=== PATIENT | female | born 1970 | race Caucasian/White ===

== ENCOUNTER → 2018-01-03 09:59 | Outpatient (CLI) | payer OTHER, SELFPAY ==
[2018-01-03 10:29] LABS: Add Manual Diff / Slide Review NO; Basophils Percent Auto 1.3 % (0-2); Eosinophils Percent Auto 2.3 % (2-4); Hematocrit 36.1 % (36-46); Lymphocytes Percent Auto 45.7 % (25-40); Mean Corpuscular HGB Conc 33.4 % (30-36); Mean Corpuscular Hemoglobin 28.8 PG (26-34); Mean Corpuscular Volume 86.4 fL (80-100); Monocytes Percent Auto 10.8 % (3-14); Neutrophils Absolute Auto 1800 /uL (3000-5900); Neutrophils Percent Auto 39.9 % (50-75); Platelet Count 221 X10^3/uL (150-400); Red Blood Cell Count 4.17 X10^6/uL (4.0-5.2); Red Cell Distribution Width 17.8 % (11.6-14.8); White Blood Cell Count 4.6 X10^3/uL (4.5-11.0)
[2018-01-03 10:44] LABS: Alanine Aminotransferase 24 IU/L (9-52); Albumin 4.5 g/dL (3.5-5.0); Albumin Globulin Ratio 1.6 (1.0-2.8); Alkaline Phosphatase 64 U/L (38-126); Aspartate Aminotransferase 26 IU/L (14-36); BUN Creatinine Ratio 11.1 (6-22); Bilirubin Total 0.5 mg/dL (0.2-1.3); Blood Urea Nitrogen 10 mg/dL (7-17); Calcium 9.6 mg/dL (8.4-10.2); Carbon Dioxide 29 mmol/L (22-32); Chloride 106 mmol/L (98-107); Estimated Glomerular Filt Rate > 60.0 mL/min (>60); Globulin 2.8 g/dL (1.7-4.1); Glucose 125 mg/dL (70-100); HEMOLYSIS < 15 (0-50); Potassium 4.8 mmol/L (3.4-5.1); Sodium 144 mmol/L (137-145); Total Protein 7.3 g/dL (6.3-8.2)
[2018-01-03 11:11] LABS: Thyroid Stimulating Hormone 1.38 uIU/mL (0.47-4.68)
== END ==
PROVIDERS: Visit Provider Psychiatry & Neurology Psychiatry
DX: Z51.81 Encounter for therapeutic drug level monitoring (principal)
CPT/HCPCS: 36415; 80053; 84443; 85025

== ENCOUNTER → 2018-11-07 17:43 | Outpatient (CLI) | payer OTHER, SELFPAY ==
--- NOTE | 2018-11-07 | DI.MRI.S_ITS ---
PROCEDURE: MR LUMBAR SPINE WO CON INDICATIONS: LOW BACK PAIN TECHNIQUE: Noncontrast sagittal T1 spin echo and T2 fast echo, coronal T2, sagittal STIR, axial T1 and T2 fast spin echo through the lumbar spine. COMPARISON: [facility] [place], CR, XR LUMBAR SPINE WITH OLBIQUES PLUS FLEXION EXTENSION, 09/20/2018, 10:30. FINDINGS: Image quality: Excellent. Alignment and Curvature: 5 lumbar type vertebral bodies are present by plain film. There is moderate rightward curvature of the mid/upper lumbar spine, and otherwise normal bony alignment. Bone Marrow: Marrow is of normal overall signal. No acute vertebral body compression fractures. There is mild reactive signal within the endplates adjacent to the L2-L3 and L4-L5 intervertebral discs. Spinal Cord: Conus medullaris terminates at the upper L2 level. Visualized cord demonstrates normal signal and size. Paraspinous Soft Tissues: No paravertebral masses. L1-L2: Mild disc desiccation. Mild diffuse disc bulge. Mild bilateral facet and ligament flavum hypertrophy. Mild canal stenosis. No foraminal stenosis. L2-L3: Moderate disc height loss and desiccation. Moderate diffuse disc bulge. Mild bilateral facet and ligamentum flavum hypertrophy. Mild canal stenosis. Mild left foraminal stenosis. No right foraminal stenosis. L3-L4: Mild disc height loss and desiccation. Mild bilateral facet and ligamentum flavum hypertrophy. No significant canal, nor foraminal stenosis. L4-L5: Moderate disc height loss and desiccation. Mild diffuse disc bulge with small superimposed broad-based right posterolateral and far lateral protrusion. Mild bilateral facet hypertrophy. Mild canal stenosis. Mild right and no left foraminal stenosis. L5-S1: Mild disc height loss and desiccation. Mild diffuse disc bulge. Mild bilateral facet hypertrophy. No significant canal stenosis. Mild bilateral foraminal stenosis. IMPRESSION: 1. Multilevel degenerative disc and facet disease, as well as ligamentum flavum hypertrophy and epidural lipomatosis. 2. Mild multilevel canal and foraminal stenoses. No neural impingement. Dictated by: Tony Rodriguez M.D. on 11/08/2018 at 10:46 Approved by: Tony Rodriguez M.D. on 11/08/2018 at 10:59
== END ==
PROVIDERS: Visit Provider Physical Medicine & Rehabilitation
DX: M54.5 Low back pain (principal); M51.36 Other intervertebral disc degeneration, lumbar region; M47.816 Spondylosis without myelopathy or radiculopathy, lumbar region
CPT/HCPCS: 72148

== ENCOUNTER → 2019-05-30 17:08 | Outpatient (CLI) | payer OTHER, SELFPAY ==
--- NOTE | 2019-05-30 | DI.MRI.S_ITS ---
PROCEDURE: MR CERVICAL SPINE WO CON INDICATIONS: radiculopathy, cervical region TECHNIQUE: Noncontrast sagittal T1 spin echo and T2 fast spin echo, sagittal STIR, foraminal oblique sagittal T2 fast spin echo, and axial gradient echo or T2 fast spin echo through the cervical spine. COMPARISON: None. FINDINGS: Image quality: Excellent. Alignment and Curvature: Straightening of the normal lordotic curvature. Bone Marrow: Multilevel degenerative endplate sclerosis and spurring. Diffuse facet arthropathy, however most severe at C2-C3 on the left. Spinal Cord: Visualized spinal cord has normal size and signal. No cerebellar tonsillar herniation. Paraspinous Soft Tissues: No paravertebral masses. Prevertebral soft tissues are normal in thickness. C2-C3: No central canal stenosis, or right foraminal narrowing. Moderate left foraminal stenosis related to facet hypertrophy with nerve root compression. C3-C4: No central canal stenosis. Moderate right foraminal stenosis with nerve root compression. Mild left foraminal narrowing C4-C5: No significant central canal stenosis. Prominent vessels present within the neural foramen, and mild right foraminal narrowing. Prominent vessels are noted within the neural foramen, and mild left foraminal narrowing. C5-C6: No central canal stenosis. Prominent vessels near the neural foramen, and no minimal foraminal narrowing. No right foraminal stenosis C6-C7: No high-grade central canal stenosis. Mild right-sided foraminal narrowing. No left foraminal stenosis C7-T1: No central canal stenosis. Mild bilateral foraminal narrowing. IMPRESSION: Multilevel lumbar spondylosis and prominent diffuse facet arthropathy as above. No high-grade central canal stenosis Numerous bilateral foraminal stenoses as detailed above by spinal level. Straightening of the normal lordotic curvature. Dictated by: Maxwell Dean M.D. on 05/31/2019 at 8:27 Approved by: Maxwell Dean M.D. on 05/31/2019 at 8:55
== END ==
PROVIDERS: PCP Nurse Practitioner Family; Referring Provider Physical Medicine & Rehabilitation; Visit Provider Physical Medicine & Rehabilitation
DX: M47.22 Other spondylosis with radiculopathy, cervical region (principal); M48.02 Spinal stenosis, cervical region
CPT/HCPCS: 72141

== ENCOUNTER → 2021-03-09 07:37 | Outpatient (CLI) | payer OTHER, SELFPAY ==
--- NOTE | 2021-03-09 07:39 | DI.RAD.S_ITS ---
PROCEDURE: XR HAND RT MIN 3V INDICATIONS: thumb pain TECHNIQUE: 3 views of the hand(s) acquired. COMPARISON: None. FINDINGS: Bones: No fractures or dislocations. Carpal bones are normally aligned. No suspicious bony lesions. Thumb is unremarkable. Soft tissues: No suspicious soft tissue calcifications. IMPRESSION: No evidence acute bony abnormality of the right hand. If clinical suspicion and/or symptoms persist, further assessment with repeat plain films, or advanced imaging (e.g., CT, MRI, or bone scan) may be helpful for further assessment. Dictated by: Soham Granados M.D. on 03/09/2021 at 8:48 Approved by: Soham Granados M.D. on 03/09/2021 at 8:49
[2021-03-09 08:34] LABS: Add Manual Diff / Slide Review NO; Basophils Absolute Auto 0 /uL (0-100); Basophils Percent Auto 0.7 % (0-2); Eosinophils Absolute Auto 100 /uL (0-450); Eosinophils Percent Auto 1.4 % (2-4); Hematocrit 36.1 % (36-46); Hemoglobin 11.7 g/dL (12.0-16.0); Lymphocytes Absolute Auto 2200 /uL (1100-4500); Lymphocytes Percent Auto 36.8 % (25-40); Mean Corpuscular HGB Conc 32.3 % (30-36); Mean Corpuscular Hemoglobin 29.7 PG (26-34); Mean Corpuscular Volume 91.9 fL (80-100); Monocytes Absolute Auto 600 /uL (0-900); Monocytes Percent Auto 9.6 % (3-14); Neutrophils Absolute Auto 3100 /uL (1500-7000); Neutrophils Percent Auto 51.5 % (50-75); Platelet Count 184 X10^3/uL (150-400); Red Blood Cell Count 3.93 X10^6/uL (4.0-5.2); Red Cell Distribution Width 16.7 % (11.6-14.8)
[2021-03-09 08:54] LABS: Alanine Aminotransferase 20 IU/L (<35); Albumin 4.3 g/dL (3.5-5.0); Albumin Globulin Ratio 1.6 (1.0-2.8); Alkaline Phosphatase 54 U/L (38-126); Aspartate Aminotransferase 28 IU/L (14-36); BUN Creatinine Ratio 14.3 (6-22); Bilirubin Total 0.4 mg/dL (0.2-1.3); Blood Urea Nitrogen 13 mg/dL (7-17); Calcium 9.7 mg/dL (8.4-10.2); Carbon Dioxide 28 mmol/L (22-32); Chloride 104 mmol/L (98-107); Cholesterol 186 mg/dL (140-199); Estimated Glomerular Filt Rate > 60.0 mL/min (>60); Globulin 2.7 g/dL (1.7-4.1); Glucose 101 mg/dL (70-100); HDL Cholesterol 65 mg/dL (40-60); HEMOLYSIS < 15 (0-50); LDL Cholesterol Calculated 103 mg/dL (<100); Potassium 4.8 mmol/L (3.4-5.1); Sodium 140 mmol/L (137-145); Triglycerides 90 mg/dL (35-150)
[2021-03-09 09:16] LABS: TSH w/ Reflex to FT4 0.89 uIU/mL (0.47-4.68)
== END ==
PROVIDERS: PCP Internal Medicine; Referring Provider Internal Medicine; Visit Provider Internal Medicine
DX: M79.646 Pain in unspecified finger(s) (principal); F10.21 Alcohol dependence, in remission; F43.12 Post-traumatic stress disorder, chronic; G89.29 Other chronic pain; M54.9 Dorsalgia, unspecified; Z13.1 Encounter for screening for diabetes mellitus; Z13.220 Encounter for screening for lipoid disorders
CPT/HCPCS: 36415; 73130; 80053; 80061; 84443; 85025

== ENCOUNTER → 2021-07-21 | Outpatient (CLI) | payer OTHER, SELFPAY ==
--- NOTE | 2021-07-21 | DI.MG.S_ITS ---
BILATERAL DIGITAL SCREENING MAMMOGRAM 3D/2D WITH CAD WITH AUGMENTATION: 07/21/2021 CLINICAL: Routine screening. No prior exams were available for comparison. The tissue of both breasts is heterogeneously dense. This may lower the sensitivity of mammography. Current study was also evaluated with a Computer Aided Detection (CAD) system. Bilateral breast implants are intact. No significant masses, calcifications, or other findings are seen in either breast. IMPRESSION: NEGATIVE There is no mammographic evidence of malignancy. A 1 year screening mammogram is recommended. This exam was interpreted at Station ID: [id number]. NOTE: For mammograms, a report in lay terms will be sent to the patient. Approximately 15% of breast malignancies will not be visualized mammographically. In the management of a palpable breast mass, a negative mammogram must not discourage biopsy of a clinically suspicious lesion. Electronically Signed By: Dusty lee/alicia:07/31/2021 13:33:38 letter sent: Normal Exam ACR BI-RADS Category 1: Negative 3341F
== END ==
LOC: MAMMO 08:03
PROVIDERS: PCP Internal Medicine; Referring Provider Internal Medicine; Visit Provider Internal Medicine
DX: Z12.31 Encounter for screening mammogram for malignant neoplasm of breast (principal)
CPT/HCPCS: 77063; 77067

== ENCOUNTER → 2021-10-01 11:17 | Outpatient (CLI) | payer OTHER, SELFPAY ==
--- NOTE | 2021-10-01 | DI.MRI.S_ITS ---
PROCEDURE: MR LUMBAR SPINE WO CON INDICATIONS: RADICULOPATHY LUMBAR REGION TECHNIQUE: Noncontrast sagittal T1 spin echo and T2 fast echo, sagittal STIR, and T2 fast spin echo through the lumbar spine. In cases with scoliosis, additional coronal T2 fast spin echo may be performed. COMPARISON: [facility], MR, MR LUMBAR SPINE WO CON, 11/07/2018, 17:56. FINDINGS: Moderate lumbar dextroscoliosis centered at L2 is similar to the prior study. Otherwise normal alignment. Vertebral body heights maintained. There is no suspicious focal marrow signal abnormality. New from the prior study there is discogenic marrow edema at the opposing T12-L1 endplates, more pronounced on the left. There is also new Schmorl node formation and new loss of disc height at this level. Nonedematous fatty degenerative endplate signal changes present at L2-L3 and L4-L5, similar to the prior study. Periarticular bone marrow and soft tissue edema surrounding the right L4-L5 and L5-S1 facets is increased from prior study. Normal position and appearance of the conus. Prevertebral and paraspinous soft tissues are normal. T12-L1: Mild neural foraminal narrowing on the left due to a small foraminal protrusion. This is new from the prior study. No spinal canal stenosis or neural foraminal narrowing on the right. L1-L2: No spinal canal or neural foraminal stenosis. No significant change from the prior study. L2-L3: Mild neural foraminal narrowing on the left due to facet hypertrophy and small foraminal components of a diffuse disc bulge is similar to the prior study. No neural foraminal narrowing on the right. No spinal canal stenosis. No significant change from prior study. L3-L4: No spinal canal or neural foraminal stenosis. No significant change from prior study. L4-L5: No spinal canal stenosis. Mild right greater than left neural foraminal stenosis due to facet hypertrophy and foraminal components of a diffuse disc bulge. Disc material abuts the exiting right L4 nerve root. Moderate facet hypertrophy again noted. No significant change from prior study. L5-S1: No spinal canal stenosis. Mild neural foraminal narrowing due to facet hypertrophy and small foraminal components of a diffuse disc bulge. No significant change from prior study. IMPRESSION: Multilevel multifactorial degenerative changes. New bone marrow edema at the opposing T12-L1 endplates, along with worsened bone marrow edema and soft tissue edema surrounding the right L4-L5 and L5-S1 facets. These are both potential sources of nonradicular axial back pain and represent change from the prior study. No evidence of focal nerve root impingement. No significant spinal canal stenosis and no greater than mild neural foraminal narrowing at any level. No significant increase in the degree of spinal canal or neural foraminal narrowing when compared with the prior study. Moderate dextroscoliosis. Dictated by: Salo Buchanan M.D. on 10/02/2021 at 4:15 Approved by: Salo Buchanan M.D. on 10/02/2021 at 4:23
== END ==
PROVIDERS: PCP Internal Medicine; Referring Provider Physical Medicine & Rehabilitation; Visit Provider Physical Medicine & Rehabilitation
DX: M47.26 Other spondylosis with radiculopathy, lumbar region (principal); M41.86 Other forms of scoliosis, lumbar region
CPT/HCPCS: 72148

== ENCOUNTER → 2022-03-19 09:58 | Outpatient (CLI) | payer OTHER, SELFPAY ==
[2022-03-19 11:57] LABS: Add Manual Diff / Slide Review NO; Basophils Absolute Auto 0 /uL (0-100); Basophils Percent Auto 0.8 % (0-2); Eosinophils Absolute Auto 0 /uL (0-450); Eosinophils Percent Auto 0.3 % (2-4); Hematocrit 34.3 % (36-46); Hemoglobin 11.2 g/dL (12.0-16.0); Lymphocytes Absolute Auto 1400 /uL (1100-4500); Lymphocytes Percent Auto 23.3 % (25-40); Mean Corpuscular HGB Conc 32.6 % (30-36); Mean Corpuscular Hemoglobin 29.9 PG (26-34); Mean Corpuscular Volume 91.7 fL (80-100); Monocytes Absolute Auto 400 /uL (0-900); Monocytes Percent Auto 6.4 % (3-14); Neutrophils Absolute Auto 4200 /uL (1500-7000); Neutrophils Percent Auto 69.2 % (50-75); Platelet Count 176 X10^3/uL (150-400); Red Blood Cell Count 3.74 X10^6/uL (4.0-5.2); Red Cell Distribution Width 17.7 % (11.6-14.8)
[2022-03-19 12:09] LABS: Prothrombin Time 11.4 SECONDS (10.1-12.7)
[2022-03-19 12:11] LABS: PTT Partial Thromboplastin Tim 33 SECONDS (26-36)
[2022-03-19 12:20] LABS: Alanine Aminotransferase 23 IU/L (<35); Albumin 4.3 g/dL (3.5-5.0); Albumin Globulin Ratio 1.4 (1.0-2.8); Alkaline Phosphatase 72 U/L (38-126); Aspartate Aminotransferase 33 IU/L (14-36); Bilirubin Total 0.3 mg/dL (0.2-1.3); Blood Urea Nitrogen 10 mg/dL (7-17); Calcium 8.8 mg/dL (8.4-10.2); Carbon Dioxide 29 mmol/L (22-32); Chloride 105 mmol/L (98-107); Estimated Glomerular Filt Rate > 60 mL/min (>60); Globulin 3.1 g/dL (1.7-4.1); Glucose 94 mg/dL (70-100); HEMOLYSIS < 15 (0-50); Potassium 3.8 mmol/L (3.4-5.1); Sodium 140 mmol/L (137-145); Total Protein 7.4 g/dL (6.3-8.2)
== END ==
PROVIDERS: PCP Internal Medicine; Referring Provider Internal Medicine; Visit Provider Internal Medicine
DX: Z01.812 Encounter for preprocedural laboratory examination (principal)
CPT/HCPCS: 36415; 80053; 85025; 85610; 85730

== ENCOUNTER → 2022-11-19 12:10 | Outpatient (CLI) | payer OTHER, SELFPAY ==
--- NOTE | 2022-11-19 | DI.MRI.S_ITS ---
PROCEDURE: MR CERVICAL SPINE WO CON INDICATIONS: Radiculopathy, cervical region TECHNIQUE: Noncontrast sagittal T1 spin echo and T2 fast spin echo, sagittal STIR, foraminal oblique sagittal T2 fast spin echo, and axial gradient echo or T2 fast spin echo through the cervical spine. COMPARISON: [facility], MR, MR CERVICAL SPINE WO CON, 05/30/2019, 17:22. FINDINGS: Image quality: Diagnostic. Alignment and Curvature: There is overall straightening of the normal cervical lordosis. No focal AP alignment abnormality is seen. Bone Marrow: Marrow demonstrates normal overall signal. Spinal Cord: Visualized spinal cord has normal size and signal. No cerebellar tonsillar herniation. Paraspinous Soft Tissues: No paravertebral masses. Prevertebral soft tissues are normal in thickness. C2-C3: The disc height and disk signal are relatively well-preserved. Mild disc osteophyte complex is seen, which is slightly eccentric to the left. There is mild right-sided and moderate left-sided facet hypertrophy. There is [id number] left-sided and no right-sided neural foraminal narrowing. No central canal narrowing is seen. When comparison is made with the prior images, these findings are similar. C3-C4: Mild loss of disc height is seen. Loss of disc signal is seen. A mild degree of generalized disc osteophyte complex is seen. At least moderate facet hypertrophy is seen, right worse than left. There is moderate to severe right-sided and moderate left-sided neural foraminal narrowing. Mild central canal narrowing is seen. There is associated mass effect upon the ventral spinal cord. No significant change from the prior. C4-C5: The disc height and disk signal are well-preserved. Minimal disc osteophyte complex is seen. Moderate to prominent facet hypertrophy can be seen. Mild bilateral neural foraminal narrowing is seen. No central canal narrowing is seen. When comparison is made with the prior images, these findings are similar. C5-C6: The disc height and disk signal are well-preserved. A mild degree of generalized disc osteophyte complex is seen. Moderate facet hypertrophy is seen, right worse than left. No neural foraminal or central canal narrowing can be seen. No significant change from the prior. C6-C7: No significant abnormality is seen. C7-T1: Normal appearance. IMPRESSION: Cervical spine degenerative changes can be seen, which are similar to 2020. Dictated by: Sam Cornejo M.D. on 11/19/2022 at 17:54 Approved by: Sam Cornejo M.D. on 11/19/2022 at 17:57
== END ==
PROVIDERS: PCP Internal Medicine; Referring Provider Physical Medicine & Rehabilitation; Visit Provider Physical Medicine & Rehabilitation
DX: M47.22 Other spondylosis with radiculopathy, cervical region (principal)
CPT/HCPCS: 72141

== ENCOUNTER 2022-12-28 10:58 | Day surgery (SDC) | payer OTHER, SELFPAY ==
--- NOTE | 2022-12-28 | PATH_ITS ---
[facility] Accession Number: [id number] No. of containers..01 Tissue . 01 Material submitted: . esophagus - ESOPHAGEAL BIOPSY . 01 Diagnosis: Esophagus, Biopsy: Squamous epithelium with no significant diagnostic abnormality. Intraepithelial eosinophils are not increased. Negative for dysplasia and malignancy. V 01/05/2023 1414 Local . 01 Electronically signed: . Linn Parish MD, Pathologist NPI- [id number] . 01 Gross description: . ESOPHAGEAL BIOPSY: Received in formalin is 1 fragment(s) of stanley, soft tissue measuring 0.5 x 0.1 x 0.1 cm submitted entirely in 1 cassette(s) /AAY 12/30/2022 2350 Local . 01 Pathologist provided ICD-10: R19.8 . 01 CPT . 611957 Specimen Comment: A courtesy copy of this report has been sent to [phone] Performed at: 01 [facility] [address] [place] [address] [address] [facility], [place], [place] [id number] MD Sha Jaramillo MD Phone: [phone]
[2022-12-28 11:18] VITALS: BMI 21.1
[2022-12-28 11:26] VITALS: BP 148/88; PULSE 70; RESP 16; TEMP 36.8; O2SAT 100
[2022-12-28] MEDS: LACTATED RINGERS 1,000 ML 200 ML IV (11:30)
--- NOTE | 2022-12-28 12:00 | P.HP_ITS ---
History of Present Illness History of Present Illness Date Patient Seen: 12/28/22 Chief complaint: EGD/Colonoscopy Narrative: 52-year-old woman here for diagnostic esophagoduodenoscopy and screening colonoscopy for a diagnosis esophageal dysphagia. No interval change in health. Please refer to the H and P from August 2022 for further detail. [facility] Medical History Abnormal Pap smear of cervix (~2004) Alcohol use disorder, moderate, in sustained remission Chlamydia (~1991) Chronic back pain Depression Generalized anxiety disorder Heavy menstrual period Irregular menstrual cycle Ovarian cyst Painful menstrual periods Personality disorder PID (pelvic inflammatory disease) Post-traumatic stress disorder, chronic Scoliosis Substance abuse Surgical History Anesthesia History of breast augmentation (~2009) History of cholecystectomy (~1996) S/P spinal fusion (04/15/22) Family History Father Colon cancer Social History marital status: household members: spouse lives independently: Yes occupational status: disabled Smoking Status: Current every day smoker alcohol intake: former substance use type: marijuana Meds Home Medications and Allergies Home Medications Medication Instructions Recorded Confirmed Type disulfiram 250 mg tablet 250 mg PO DAILY PRN craving 02/23/21 12/28/22 History methocarbamol 500 mg tablet 500 - 1,000 mg PO TID 06/29/22 12/28/22 History lamotrigine 50 mg tablet,extended 150 mg PO DAILY #90 tabs 07/27/22 12/28/22 Rx release 24 hr trazodone 150 mg tablet 150 mg PO BEDTIME insomnia #90 tabs 07/27/22 12/28/22 Rx lorazepam 0.5 mg tablet (Ativan) 0.5 mg PO BIDP PRN Anxiety or 11/11/22 12/28/22 Rx panic #10 tabs tramadol 50 mg tablet 50 mg PO Q8H PRN Pain (Scale Score 12/28/22 12/28/22 History 1-3) Allergies Allergy/AdvReac Type Severity Reaction Status Date / Time No Known Drug Allergies Allergy Verified 12/28/22 11:17 Exam Vital Signs (past 8 hours): - 12/28/22 11:26 Temperature 98.2 F Pulse Rate 70 Respiratory Rate 16 Blood Pressure 148/88 H Pulse Oximetry 100 Oxygen Delivery Method Room Air Oxygen Delivery Method Room Air Narrative Exam Narrative: General adult woman alert oriented no acute distress Abdomen soft nontender nondistended Assessment & Plan Assessment and plan (1) Esophageal dysphagia: Status: Acute Assessment & Plan narrative: 52-year-old woman with esophageal dysphagia here for diagnostic esophagoduodenoscopy, possible esophageal dilation and screening colonoscopy. Technical details were discussed. Risks, benefits, alternatives explained. Risks including but not limited to myocardial infarction, aspiration, bleeding, pain, missed lesion, incomplete examination, need for further radiographic studies, intestinal injury, and need for major abdominal surgery were discussed. All questions were answered to their satisfaction, and they are in agreement with this plan.
--- NOTE | 2022-12-28 12:02 | PM.OP.EC ---
Operative Date/Time/Diagnoses Date of procedure: 12/28/22 Time of procedure: 12:02 Pre-op diagnosis: Esophageal dysphagia Colorectal screening Post-op diagnosis: other (Hiatal hernia) Procedure & Clinicians Study performed: Esophagoduodenoscopy and colonoscopy Same procedure as scheduled: Yes Indications: 52-year-old woman with esophageal dysphagia here for diagnostic EGD and screening colonoscopy Surgeon: Basil Gutierrez Procedure Notes Procedure in detail: The history and physical was performed/updated and the patient is ASA class is 2. The procedure was discussed in detail with the patient. Potential risks complications including infection, bleeding, missed diagnosis, perforation, need for surgery, and were explained. Their questions were answered and informed consent was obtained. Patient placed in left lateral decubitus position. Time out was performed. Procedural sedation was administered by Anesthesia. A bite block was placed. the scope was inserted into the mouth and advanced through the esophagus and into the stomach. The stomach was without masses, ulcers or gastritis. The pylorus was intubated and the duodenum was normal to the 2nd portion. The scope was retroflexed within the stomach and there was a moderate size hiatal hernia, Hill 3/4. The scope was withdrawn into the esophagus the Z line was seen at 35 cm from the incisions. There was no Chaidez's esophagitis, esophageal masses or strictures. Random biopsy of the esophagus formed with forceps Stomach was desufflated and scope removed. Examination began with a thorough inspection of the perianal area there was no evidence of fissures, fistulae, external hemorrhoids or cutaneous malignancy. The colonoscopy scope was then placed into the anal canal and was advanced to the cecum, which was identified by the ileocecal valve, the appendiceal orifice and the confluence of the taenia. The scope was then slowly withdrawn examining colon thoroughly in all directions, irrigating it of any residual stool. Unremarkable colonoscopy. No masses or polyps The patient tolerated the procedure well. They will be discharged once criteria are met. The prep was of good/excellent quality. The withdrawl time was * minutes. The sedation time was * minutes. Findings: hiatal hernia Specimen(s): other (Esophageal biopsy) Impression: Hiatal hernia. Colonoscopy Post-procedure Recommendations: Colonscopy in 10 years Plan for aftercare: Referral to Dr. Lexie Perdomo in regards to hiatal hernia Disposition: same day surgery
[2022-12-28 12:33] VITALS: BP 120/76; PULSE 78; RESP 13; TEMP 36.6; O2SAT 99
[2022-12-28 12:38] VITALS: BP 140/91; PULSE 72; RESP 12; TEMP 36.6; O2SAT 98
[2022-12-28 12:44] VITALS: BP 159/86; PULSE 64; RESP 12; O2SAT 97
[2022-12-28 12:54] VITALS: BP 159/87; PULSE 64; RESP 16; TEMP 36.3; O2SAT 100
--- NOTE | 2022-12-28 13:04 | SUR.PHASEII ---
pt states she understands discharge instructions. Pt denies any complaints and drinking coffee as discharged.
== END 2022-12-28 13:07 | disposition home or self-care (01) ==
PROVIDERS: PCP Internal Medicine; Referring Provider Surgery; Visit Provider Surgery
PROC: 0DJ08ZZ Inspection of Upper Intestinal Tract, Via Natural or Artificial Opening Endoscopic (ICD-10-PCS; CPT 43235; principal; 2022-12-28 12:00)
PROC: 0DJD8ZZ Inspection of Lower Intestinal Tract, Via Natural or Artificial Opening Endoscopic (ICD-10-PCS; CPT 45378; 2022-12-28 12:00)
DX: Z12.11 Encounter for screening for malignant neoplasm of colon (principal); R13.14 Dysphagia, pharyngoesophageal phase; K44.9 Diaphragmatic hernia without obstruction or gangrene
CPT/HCPCS: 45378; 43239; J2704

== ENCOUNTER → 2024-03-05 08:24 | Outpatient (CLI) | payer OTHER, SELFPAY ==
[2024-03-05 09:27] LABS: Add Manual Diff / Slide Review NO; Basophils Absolute Auto 100 /uL (0-100); Eosinophils Absolute Auto 100 /uL (0-450); Eosinophils Percent Auto 2.3 % (2-4); Hematocrit 32.3 % (36-46); Hemoglobin 10.5 g/dL (12.0-16.0); Lymphocytes Absolute Auto 1700 /uL (1100-4500); Lymphocytes Percent Auto 31.1 % (25-40); Mean Corpuscular HGB Conc 32.4 % (30-36); Mean Corpuscular Hemoglobin 28.9 PG (26-34); Mean Corpuscular Volume 89.1 fL (80-100); Monocytes Absolute Auto 600 /uL (0-900); Monocytes Percent Auto 10.3 % (3-14); Neutrophils Absolute Auto 3000 /uL (1500-7000); Neutrophils Percent Auto 55.3 % (50-75); Platelet Count 217 X10^3/uL (150-400); Red Blood Cell Count 3.63 X10^6/uL (4.0-5.2); Red Cell Distribution Width 16.1 % (11.6-14.8); White Blood Cell Count 5.4 X10^3/uL (4.5-11.0)
[2024-03-05 09:38] LABS: Alanine Aminotransferase 50 IU/L (<35); Albumin 4.1 g/dL (3.5-5.0); Albumin Globulin Ratio 1.6 (1.0-2.8); Alkaline Phosphatase 102 U/L (38-126); Aspartate Aminotransferase 40 IU/L (14-36); BUN Creatinine Ratio 17.9 (6-22); Bilirubin Total 0.3 mg/dL (0.2-1.3); Blood Urea Nitrogen 15 mg/dL (7-17); Calcium 9.2 mg/dL (8.4-10.2); Carbon Dioxide 29 mmol/L (22-32); Chloride 103 mmol/L (98-107); Estimated Glomerular Filt Rate > 60 mL/min (>60); Globulin 2.6 g/dL (1.7-4.1); Glucose 96 mg/dL (70-100); HEMOLYSIS < 15 (0-50); Potassium 4.1 mmol/L (3.4-5.1); Sodium 137 mmol/L (137-145); Total Protein 6.7 g/dL (6.3-8.2)
[2024-03-05 10:08] LABS: Thyroid Stimulating Hormone 1.51 uIU/mL (0.47-4.68)
[2024-03-07 11:22] LABS: Lamotrigine Lamictal 4.7 ug/mL (2.0-20.0)
== END ==
PROVIDERS: Psychiatry & Neurology Psychiatry; PCP Internal Medicine; Referring Provider Internal Medicine; Visit Provider Internal Medicine
DX: F32.A Depression, unspecified (principal); F41.1 Generalized anxiety disorder; Z79.899 Other long term (current) drug therapy
CPT/HCPCS: 36415; 80053; 80175; 84443; 85025

== ENCOUNTER → 2024-04-30 12:58 | Outpatient (CLI) | payer OTHER, SELFPAY ==
--- NOTE | 2024-04-30 12:59 | DI.MRI.S_ITS ---
PROCEDURE: MR ELBOW RT WO CON INDICATIONS: RIGHT ELBOW PAIN/TENNIS ELBOW TECHNIQUE: Noncontrast coronal proton density fast spin echo and T2 fast spin echo with fat saturation, axial and sagittal T1 spin echo and T2 fast spin echo with fat saturation through the elbow. COMPARISON: [facility] [place], CR, XR ELBOW 1 OR 2 VIEWS RIGHT, 04/16/2024, 13:34. FINDINGS: Image quality: Excellent. Lateral structures: There is high-grade partial tearing of the common extensor tendon at the origin superimposed on chronic tendinosis. Osseous edema is seen within the adjacent lateral epicondyle without a fracture line visualized. The radial collateral ligament and lateral ulnar collateral ligament appear to be intact. Medial structures: The ulnar collateral ligament appears intact. The overlying common flexor tendon appears normal. The ulnar nerve appears normal in size and signal within the cubital tunnel. Anterior structures: The biceps and brachialis tendons both appear intact as they insert onto the proximal radius and ulna, respectively. No bicipitoradial bursal fluid. The median and radial neurovascular bundles appear normal; no focal muscle atrophy to suggest nerve impingement. Posterior structures: The conjoint triceps tendon from the long and lateral heads appears intact. The medial head of the triceps tendon also appears normal, with direct muscle insertion onto the olecranon. No olecranon bursal fluid. Bone and cartilage: Osseous edema at the lateral epicondyle extending to the capitellum. No fracture line or definite osseous avulsion is seen. Small joint effusion no displaced osteochondral fragment. IMPRESSION: 1. High-grade partial tearing of the common extensor tendon at the origin. 2. Osseous edema at the lateral humeral epicondyle and capitellum may be reactive to the adjacent tendon tear versus secondary to traction trabecular bone injury or osseous contusion. No fracture line is seen. 3. Small joint effusion. Approved by: Ranulfo Baca M.D. on 05/01/2024 at 10:33
== END ==
PROVIDERS: PCP Internal Medicine; Referring Provider Orthopaedic Surgery; Visit Provider Orthopaedic Surgery
DX: S56.511A Strain of other extensor muscle, fascia and tendon at forearm level, right arm, initial encounter (principal); M25.521 Pain in right elbow; M25.421 Effusion, right elbow
CPT/HCPCS: 73221

== ENCOUNTER → 2024-07-12 08:36 | Outpatient (CLI) | payer OTHER, SELFPAY ==
--- NOTE | 2024-07-12 08:37 | DI.CT.S_ITS ---
PROCEDURE: CT CHEST WO CON INDICATIONS: back/scapular pain right TECHNIQUE: Noncontrast 5 mm thick sections acquired from the pulmonary apices to the posterior costophrenic angles. 1 mm lung window, 5 mm thick coronal and sagittal and 7 mm axial MIP reformats were then acquired. For radiation dose reduction, the following was used: automated exposure control, adjustment of mA and/or kV according to patient size. COMPARISON: [facility] [place], CR, XR THORACIC SPINE 3 VIEWS, 05/13/2022, 16:37. FINDINGS: Image quality: Diagnostic. Lower Neck: No enlarged lymph nodes. Thyroid: No thyroid nodules which require sonographic follow up, per consensus guidelines. Axillae: No enlarged lymph nodes. Chest Wall: Unremarkable. Bones: Unremarkable except for prior fusion crossing the thoracolumbar junction from posterior approach, showing no evidence of device loosening or disruption.. Lungs and Pleura: No pneumothorax or pleural effusions. No consolidation or suspicious nodules. Heart: Heart size is normal. No pericardial effusion. Thoracic Vessels: The aorta and pulmonary arteries demonstrate normal size. Mediastinum and Shahida: No enlarged lymph nodes. Esophagus: No wall thickening. No hiatal hernia. Upper Abdomen: Visualized upper abdomen solid organs and bowel loops appear normal. IMPRESSION: A definite source of new pain is not identified. Prior 4 level thoracolumbar posterior fusion procedure, showing no evidence of device loosening or disruption. Dictated by: Luis Sr M.D. on 07/12/2024 at 9:14 Approved by: Luis Sr M.D. on 07/12/2024 at 9:17
--- NOTE | 2024-07-12 13:57 | ST.SWALLOW ---
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 Praveen Castaneda Reason for Referral s/sx of dysphagia, hx of hiatal hernia Setting Setting Outpatient Care Patient Information Identification Type Name,Date of Patient History Pt was seen for a Modified Barium Swallow Study at the referral of Dr. Praveen Castaneda. PMHx includes hiatal hernia, esophageal dysphagia, scoliosis (spinal fusion 2021) , chronic back pain, and several mental jose diagnoses . EGD completed on 12/28/22 showed hiatal hernia. Pt has sought further medical management, though experienced barriers with insurance. She currently is scheduled for a GI follow-up on 07/26 at [facility]. Pt expressed onset of symptoms about 2-3 years ago, which have worsened in the past 6 months. Pt reports the following symptoms : tightness in her mid-chest after eating (though not during), shortness of breath during PO intake, and feeling prematurely full. Symptoms are most present with intake of regular textures, such as bread and proteins. She typically eats standing up, uses slow rate, and eats smaller meals through the day to relieve the symptoms. She has unintentionally lost about 7 lbs in past month and reports decreased appetite. She denies hx of GERD, change to vocal quality, and overt s/ sx of laryngeal penetration/ aspiration. She reported no injuries to her head/neck or neurological history. Modified Barium Swallow Study (MBSS) completed to visualize and assess swallow function and anatomy, determine aspiration risk, make appropriate and updated diet and treatment recommendations, as well as to identify need for additional referrals. Subjective Observations Pt was seated in the fluoroscopy chair with directions and procedures described for her. She indicated she understood and agreed to proceed. Patient Positioning Position View Lat-A/P Imaging Lateral View Textures Administered Trials Presented Thin Liquid via Spoon (IDDSI 0 ),Thin Liquid via Cup (IDDSI 0 ),Puree (IDDSI 4),Regular ( IDDSI 7) The IDDSI Framework Protocol: IDDSI.1 Oral Impairment Source: The Modified Barium Swallow Impairment Profile (MBSImP??) Lip Closure No labial escape Tongue Control During Bolus Hold Cohesive bolus between tongue to palatal seal Bolus Preparation/Mastication Timely & efficient chewing & mashing Bolus Transport/Lingual Motion Brisk tongue motion Oral Residue Trace residue lining oral structures Location Tongue Initiation of Pharyngeal Swallow Bolus head in valleculae Additional Oral Impairment Observations *OME and DKS were observed to be WNL. *Dentition natural and in good hygiene *Mastication observed with rotary chew pattern. *Good bolus formation, control and AP transition. *Adequate oral acceptance and containment of bolus. Oral phase of swallow observed to be WNL Pharyngeal Impairment Source: The Modified Barium Swallow Impairment Profile (MBSImP??) Soft Palate Elevation No bolus between soft palate & pharyngeal wall Laryngeal Elevation Comp.sup.move.thyroid cart.w/ comp.approx.arytenoids to epiglot petiole Anterior Hyoid Excursion Complete anterior movement Epiglottic Movement Complete inversion Laryngeal Vestibular Closure Complete; no air/contrast in laryngeal vestibule Pharyngeal Stripping Wave Present - complete Pharyngoesophageal Segment Opening Complete distention & complete duration; no obstruction of flow Tongue Base Retraction Trace column of contrast/air betwn tongue base & post. pharyngeal wall Pharyngeal Residue Trace residue within/on pharyngeal structures Location Diffuse (>3 areas) Additional Pharyngeal Impairment *Velopharyngeal closure was Observations WNL. *Hyoid/laryngeal elevation and epiglottic inversion were judged to be adequate. *Tongue base retraction was mildly reduced resulting in trace residue. *Pharyngeal stripping wave and cricopharyngeal opening appeared adequate and did not appear to impede bolus flow. *Post-swallow residue was mild primarily at the base of tongue, posterior pharyngeal wall, valleculae and pyriform sinuses primarily with puree and regular texture. Pt did sensate to residue and independently cleared with multiple dry swallows. *No laryngeal penetration or aspiration was observed. *Pharyngeal phase WFL for pt's age. A/P View Textures Administered Trials Presented Thin Liquid via Cup (IDDSI 0), Regular (IDDSI 7) The IDDSI Framework Protocol: IDDSI.1 A/P View Observations Pharyngeal Contraction Complete Esophageal Clearance Upright Position Esophageal retention Esophageal Function Slowed Clearing,Poor Motility, Stasis Additional A-P Observations Thin liquid trial, regular texture trial, and calibrated barium tablet trial were observed: *Upon changing to AP position, observed moderate amount of residue within the esophagus from prior trials. *With the regular texture trial, esophageal retention was noted mid chest. *A calibrated barium tablet was observed to stop mid chest and eventually entered the stomach following a swallow of water. *Hiatal hernia was observed throughout the trials. Clinical Impressions Dysphagia Type Esophageal Findings Oral and pharyngeal phases of pt's swallow were WFL/WNL. Stasis, dysmotility, and slow clearance of esophageal contents noted during esophageal phase. Given history of hiatal hernia, observations during esophageal phase of swallow, and pt reported esophageal symptoms, further assessment to further assess and treat esophageal symptoms is recommended. Recommend pt continue with scheduled GI appointment. Additionally, recommend pt continue to self-modify diet as needed, utilize slow rate, remain upright during PO intake and for at least 30- minutes after, and alternate liquids and solids to assist in mitigating esophageal symptoms. Rehabilitation Potential Good Patient Appropriate for Therapy No Recommendations Diet Liquids Order Thin (IDDSI 0) Diet Order Regular (IDDSI 7) Medication Recommendation As Tolerated Treatment Plan Recommended Referrals GI Consult Therapy Strategy Recommendations Sitting Upright (90 deg),Small Bites and Sips,Alternate Liquids/Solids
== END ==
LOC: RAD 08:37
PROVIDERS: PCP Internal Medicine; Referring Provider Internal Medicine; Visit Provider Internal Medicine
DX: R13.19 Other dysphagia (principal); M89.8X1 Other specified disorders of bone, shoulder; Z98.1 Arthrodesis status; M54.9 Dorsalgia, unspecified
CPT/HCPCS: 71250; 74230; 92611

== ENCOUNTER → 2024-08-17 11:35 | Outpatient (CLI) | payer OTHER, SELFPAY ==
--- NOTE | 2024-08-17 11:36 | DI.MRI.S_ITS ---
PROCEDURE: MR SHOULDER RT WO CON INDICATIONS: RT SHOULDER JOINT PAIN TECHNIQUE: Noncontrast oblique coronal T2 fast spin echo with fat saturation, oblique sagittal T1 spin echo and T2 fast spin echo with fat saturation, axial T1 spin echo and T2 fast spin echo with fat saturation through the shoulder. COMPARISON: None. FINDINGS: Image quality: Please note, limited evaluation given incomplete exam. Patient aborted the exam after 3 sequences were obtained. Rotator cuff: There is low-grade interstitial tear at the posterior footprint of the supraspinatus (12:12). The infraspinatus is unremarkable. The teres minor is unremarkable. The subscapularis is unremarkable. Mild muscle edema of the infraspinatus. No fatty atrophy. Bones and bursae: Mild degenerative change of the acromioclavicular joint. No os acromiale. No subacromial/subdeltoid bursitis. No acute fracture. No focal chondral defect of the glenohumeral articulation. Capsule and soft tissues: The anterior superior labral tear with punctate paralabral cyst. Posterior labral tear as well. The extra-articular biceps tendon is unremarkable. The intra-articular biceps tendon is grossly unremarkable as well. No significant glenohumeral effusion. No intra-articular body. T2 hyperintense lesion in the right anterior chest wall, partially visualized and may represent a breast implant. IMPRESSION: 1. Limited evaluation given incomplete exam. 2. Low-grade tear of the supraspinatus. 3. Mild muscle edema of the infraspinatus. 4. Mild degenerative changes of the acromioclavicular joint. 5. Labral tear with punctate paralabral cyst. Dictated by: Melisa Irizarry M.D. on 08/17/2024 at 15:28 Approved by: Melisa Irizarry M.D. on 08/17/2024 at 15:34
== END ==
PROVIDERS: PCP Internal Medicine; Referring Provider Orthopaedic Surgery; Visit Provider Orthopaedic Surgery
DX: M75.111 Incomplete rotator cuff tear or rupture of right shoulder, not specified as traumatic (principal); S43.431A Superior glenoid labrum lesion of right shoulder, initial encounter; M25.511 Pain in right shoulder; M25.411 Effusion, right shoulder
CPT/HCPCS: 73221

== ENCOUNTER 2024-11-19 18:55 | Emergency (ER) | payer OTHER, SELFPAY ==
[2024-11-19 18:58] VITALS: BP 173/84; PULSE 78; RESP 18; TEMP 36.9; O2SAT 99; BMI 21.2
--- NOTE | 2024-11-19 19:03 | EKG_ITS ---
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
[2024-11-19 19:25] LABS: Add Manual Diff / Slide Review NO; Hematocrit 38.9 % (36-46); Hemoglobin 13.2 g/dL (12.0-16.0); Lymphocytes Absolute Auto 2000 /uL (1100-4500); Mean Corpuscular HGB Conc 33.9 % (30-36); Mean Corpuscular Hemoglobin 33.5 PG (26-34); Mean Corpuscular Volume 98.9 fL (80-100); Platelet Count 157 X10^3/uL (150-400)
[2024-11-19 19:33] LABS: Alanine Aminotransferase 27 IU/L (<35); Albumin 4.8 g/dL (3.5-5.0); Albumin Globulin Ratio 1.5 (1.0-2.8); Alkaline Phosphatase 70 U/L (38-126); Blood Urea Nitrogen 7 mg/dL (7-17); Calcium 9.4 mg/dL (8.4-10.2); Carbon Dioxide 28 mmol/L (22-32); Chloride 102 mmol/L (98-107); Estimated Glomerular Filt Rate > 60 mL/min (>60); Globulin 3.1 g/dL (1.7-4.1); Glucose 88 mg/dL (70-99); HEMOLYSIS < 15 (0-50); Lipase 58 U/L (23-300); Potassium 3.5 mmol/L (3.4-5.1); Sodium 138 mmol/L (137-145); Total Protein 7.9 g/dL (6.3-8.2)
--- NOTE | 2024-11-19 22:24 | ED.GENADULT ---
HPI - General Adult General Chief complaint: Abdominal Pain Stated complaint: severe pain left torso Time Seen by Provider: 11/19/24 22:18 Source: patient Mode of arrival: Ambulatory History of Present Illness HPI narrative: 54-year-old female with prior gallbladder surgery, no other abdominopelvic surgeries recalled, history of scoliosis related posterior approach back surgery T12-L2 about 3 years ago, then 1 year ago had bilateral SI fusion procedures, both by Neurosurgery Dr. Diaz at [facility], having chronic back pain. Now complains of 3 weeks intermittent left upper middle quadrant abdominal pain, and left flank pain, worsening last few days. No injury trauma new activities. No lower extremity pain. No history of kidney stones or frequent urinary tract infections. No fevers or chills. No painful frequent urination. No cough or chest pain or shortness of breath. Denies history of colitis or diverticulitis. Related Data Home Medications ?Medication ?Instructions ?Recorded ?Confirmed disulfiram 250 mg tablet 250 mg PO DAILY PRN craving 02/23/21 11/13/24 Previous Rx's ?Medication ?Instructions ?Recorded lamotrigine 200 mg tablet,extended 200 mg PO BEDTIME #90 tabs 03/07/24 release 24 hr lorazepam 0.5 mg tablet (Ativan) 0.5 mg PO BID PRN Anxiety or panic 06/20/24 #10 tabs hydroxyzine HCl 25 mg tablet 25 mg PO QID PRN anxiety #120 tabs 06/28/24 trazodone 150 mg tablet 150 mg PO BEDTIME insomnia #90 tabs 11/01/24 duloxetine 30 mg capsule,delayed 30 mg PO DAILY #90 caps 11/13/24 release Allergies Allergy/AdvReac Type Severity Reaction Status Date / Time No Known Drug Allergies Allergy Verified 11/19/24 19:02 Patient History Medical History (Updated 11/20/24 @ 00:00 by Brent Madrid MD) Chronic neck pain Hiatal hernia Scoliosis Substance abuse Personality disorder Depression Chronic back pain PID (pelvic inflammatory disease) Painful menstrual periods Ovarian cyst Irregular menstrual cycle Heavy menstrual period Chlamydia (~1991) Abnormal Pap smear of cervix (~2004) Alcohol use disorder, moderate, in sustained remission Post-traumatic stress disorder, chronic Generalized anxiety disorder Surgical History S/P spinal fusion (04/15/22) Anesthesia History of cholecystectomy (~1996) History of breast augmentation (~2009) Family History Father Colon cancer Social History marital status: household members: spouse lives independently: Yes occupational status: disabled Smoking Status: Current every day smoker alcohol intake: former substance use type: marijuana Smoking Status: Current every day smoker tobacco type: cigarettes Exam Narrative Exam Narrative: GENERAL: Well-developed patient, in mild distress. HEAD: Atraumatic. Normocephalic. EYES: Pupils equal round and reactive. Extraocular motions intact. No scleral icterus. No injection or drainage. ENT: Nose without bleeding, purulent drainage. Airway patent. NECK: Trachea midline. Non tender CARDIOVASCULAR: Regular rate and rhythm without murmurs, gallops, or rubs. RESPIRATORY: Clear to auscultation. Breath sounds equal bilaterally. No wheezes, rales, or rhonchi. GASTROINTESTINAL: Tenderness left upper quadrant and left middle lower quadrant without guarding or rebound, nondistended, hyperactive bowel tones without rushes or tinkles. EXTREMITIES: No edema or joint tenderness. BACK: Nontender without deformity or crepitance. No flank tenderness. NEURO: AOx3. Motor functions grossly nonfocal. SKIN: No rash or erythema of visible areas Initial Vital Signs Initial Vital Signs: Vital Signs Temperature 98.5 F 11/19/24 18:58 Pulse Rate 78 11/19/24 18:58 Respiratory Rate 18 11/19/24 18:58 Blood Pressure 173/84 H 11/19/24 18:58 Pulse Oximetry 99 11/19/24 18:58 Oxygen Delivery Method Room Air 11/19/24 18:58 Course Orders Ordered: ED Orders 11/19/24 22:34 CT abdomen pelvis w con Stat Discontinued Medications Hydromorphone HCl (Hydromorphone Hcl 0.5 Mg/0.5 Ml Syringe) 0.5 mg IV NOW ONE Stop: 11/19/24 22:35 Last Admin: 11/19/24 22:43 Dose: 0.5 mg Documented By: LS Sodium Chloride (Normal Saline 0.9%) 1,000 mls @ 1,000 mls/hr IV BOLUS ONE Stop: 11/19/24 23:33 Last Infusion: 11/19/24 23:58 Dose: Infused Documented By: Admin: 11/19/24 22:43 Dose: 1,000 mls/hr Documented By: NIK Sodium Chloride (Normal Saline 0.9%) 1,000 mls @ 1,000 mls/hr IV BOLUS ONE Stop: 11/19/24 23:42 Ondansetron HCl (Ondansetron 4 Mg/2 Ml Inj) 4 mg IV NOW PRN PRN Reason: Nausea And Vomiting Ondansetron HCl (Ondansetron 4 Mg Odt) 4 mg PO NOW PRN PRN Reason: Nausea And Vomiting Ondansetron HCl (Ondansetron 4 Mg/2 Ml Inj) 4 mg IV NOW ONE Stop: 11/19/24 22:35 Last Admin: 11/19/24 22:43 Dose: 4 mg Documented By: NIK Ondansetron HCl (Ondansetron 4 Mg Odt Prepack) 1 bottle MISC DIRECTED ONE Stop: 11/19/24 23:58 Last Admin: 11/20/24 00:01 Dose: 1 bottle Documented By: NIK Vital Signs Vital signs: Vital Signs - 8 hr 11/19/24 22:47 11/19/24 22:47 11/19/24 23:00 Pulse Rate 60 Respiratory Rate 17 Blood Pressure 140/78 135/76 Pulse Oximetry 98 Oxygen Delivery Method Room Air 11/19/24 23:00 11/19/24 23:26 11/19/24 23:26 Pulse Rate 58 L 61 Respiratory Rate Blood Pressure 158/74 H Pulse Oximetry 96 98 Oxygen Delivery Method 11/19/24 23:30 11/19/24 23:31 11/19/24 23:31 Pulse Rate 56 L 56 L Respiratory Rate 14 Blood Pressure 156/80 H 121/58 L Pulse Oximetry 98 97 Oxygen Delivery Method Room Air 11/20/24 00:00 11/20/24 00:01 11/20/24 00:01 Pulse Rate 56 L 58 L Respiratory Rate Blood Pressure 164/79 H Pulse Oximetry 96 96 Oxygen Delivery Method Medical Decision Making Lab Data Lab results reviewed: Yes I reviewed the patient's lab results. Lab results narrative: White blood cell count 7900, hemoglobin 13.2, platelets adequate. Glucose 88. Normal renal function, serum CO2, electrolytes. AST slight elevation, other liver functions normal. Lipase normal. Urine dip positive blood, otherwise negative. Urinalysis pending. 11/19/24 19:10 11/19/24 19:10 Labs: Lab Results 11/19/24 11/19/24 Range/Units 19:10 19:20 WBC 7.9 (4.5-11.0) X10^3/uL RBC 3.93 L (4.0-5.2) X10^6/uL Hgb 13.2 (12.0-16.0) g/dL Hct 38.9 (36-46) % MCV 98.9 (80-100) fL MCH 33.5 (26-34) PG MCHC 33.9 (30-36) % RDW 13.9 (11.6-14.8) % Plt Count 157 (150-400) X10^3/uL Neut % (Auto) 67.1 (50-75) % Lymph % (Auto) 24.9 L (25-40) % [place] % (Auto) 7.1 (3-14) % Eos % (Auto) 0.0 L (2-4) % Baso % (Auto) 0.9 (0-2) % Neut # (Auto) 5300 (7052-0480) /uL Lymph # (Auto) 2000 (1216-4003) /uL [place] # (Auto) 600 (0-900) /uL Eos # (Auto) 0 (0-450) /uL Baso # (Auto) 100 (0-100) /uL Sodium 138 (137-145) mmol/L Potassium 3.5 (3.4-5.1) mmol/L Chloride 102 (98-107) mmol/L Carbon Dioxide 28 (22-32) mmol/L BUN 7 (7-17) mg/dL Creatinine 0.78 (0.52-1.04) mg/dL Estimated GFR > 60 (>60) mL/min BUN/Creatinine Ratio 9.0 (6-22) Glucose 88 (70-99) mg/dL Calcium 9.4 (8.4-10.2) mg/dL Total Bilirubin 0.5 (0.2-1.3) mg/dL AST 37 H (14-36) IU/L ALT 27 (<35) IU/L Alkaline Phosphatase 70 (38-126) U/L Total Protein 7.9 (6.3-8.2) g/dL Albumin 4.8 (3.5-5.0) g/dL Globulin 3.1 (1.7-4.1) g/dL Albumin/Globulin Ratio 1.5 (1.0-2.8) Lipase 58 (23-300) U/L Urine RBC 10-30/hpf H (0-5/HPF) Urine WBC 0-1/hpf (0-5/HPF) Ur Squamous Epith Cells 5-10 /hpf H (0-5/HPF) Urine Bacteria Moderate (10-30) H (None) Granular Casts 0-1/lpf (None) Urine Mucus 1+ H (Negative) Ur Culture Indicated? Cult not indicated Vol Urine Centrifuged 10ml (spun) Point of Care Testing Glucose POC 159 Urine Dip Bedside Urine Glucose Negative Bedside Urine Bilirubin - Negative Bedside Urine Ketone - Negative Urine Specific [place] 1.025 Bedside Urine Occult Blood ++ Bedside Urine pH 6.0 Bedside Urine Protein - Negative Bedside Urine Urobilinogen +/- 1mg Bedside Urine Nitrite - Negative Bedside Urine Leukocytes - Negative Esterase Point of care testing: Point of Care Testing Glucose POC 159 Urine Dip Bedside Urine Glucose Negative Bedside Urine Bilirubin - Negative Bedside Urine Ketone - Negative Urine Specific [place] 1.025 Bedside Urine Occult Blood ++ Bedside Urine pH 6.0 Bedside Urine Protein - Negative Bedside Urine Urobilinogen +/- 1mg Bedside Urine Nitrite - Negative Bedside Urine Leukocytes - Negative Esterase Imaging Data CT scan - abdomen/pelvis: Radiologist's Impression: [place] [address] CT Scan Report Signed Patient: Demetra Moyer MR#: [id number] : 1970 Acct:[id number] Age/Sex: 54 / F Date of Service: 11/19/24 Loc: ED Accession Number: [id number] Procedure: CT abdomen pelvis w con Ordering Provider: Brent Madrid MD PROCEDURE: CT ABDOMEN PELVIS W CON INDICATIONS: L sided abd flank pain TECHNIQUE: After the administration of intravenous contrast, axial sections acquired from the lung bases to the pubic symphysis. Coronal and sagittal reformats were performed. For radiation dose reduction, the following was used: automated exposure control, adjustment of mA and/or kV according to patient size. COMPARISON: [facility], CT, CT CHEST WO CON, 07/12/2024, 8:46. FINDINGS: Image quality: Diagnostic. Lower Chest: No significant findings. ABDOMEN: Liver: No solid mass. Gallbladder: Surgically absent. Biliary ducts: Dilated but likely within normal limits for post cholecystectomy status. Pancreas: Mildly dilated proximally measuring up to 4 mm. Spleen: Size is within normal limits. Adrenal Glands: No adrenal nodules. Kidneys and Ureters: No hydronephrosis. No solid mass. No complex renal cystic lesion which requires follow up. Stomach and Bowel: Moderate to large hiatal hernia. Normal colonic caliber, without significant wall thickening. Normal appendix. Peritoneum: No abnormal intraperitoneal fluid. No free air. Ventral Wall: No significant ventral hernia. Abdominal Nodes: No retroperitoneal or mesenteric adenopathy by size criteria. Vessels: Aorta and inferior vena cava are normal in size. PELVIS: Pelvic Organs: Likely small uterine fibroids. Bladder: No bladder wall thickening, accounting for underdistention. Pelvic Nodes: No enlarged lymph nodes. Miscellaneous: No inguinal hernias are seen. Bones: No aggressive osseous abnormality. Bilateral sacroiliac joint fixation. T11 through L2 posterior spinal fixation. Dextroscoliotic curvature. Degenerative changes of the spine. IMPRESSION: 1. No acute findings within the abdomen or pelvis. 2. Moderate to large hiatal hernia. 3. Status post cholecystectomy with biliary ductal dilatation, likely due to post cholecystectomy status. Mild dilatation of the proximal pancreatic duct measuring 4 mm. 4. Please see above for additional findings. Dictated by: Yahir Issa M.D. on 11/19/2024 at 23:27 Approved by: Yahir Issa M.D. on 11/19/2024 at 23:34 ECG Data Attestation: I personally reviewed and interpreted this ECG as follows: Interpretation: 192, normal sinus rhythm with rate of 64, no obvious ST segment elevation or depression changes. UT 148, QRS 92, QTC 429. MDM Narrative Medical decision making narrative: 54-year-old female with chronic low back pain after previous thoracolumbar T12-L2 scoliosis related surgery 3 years ago, same surgeon in [facility] did her bilateral SI joint fusions, now with 3 weeks duration intermittent left flank and left upper middle quadrant abdominal pain. Afebrile, sirs screen negative. Some left mid upper quadrant mild tenderness, active bowel tones without rushes or tinkles. DDx consider left-sided abdominal flank pain due to colitis, diverticulitis, UTI/pyelonephritis, obstructing stone, gynecological, musculoskeletal, bowel obstruction, radicular, other. Lab data: White blood cell count 7900, hemoglobin 13.2, platelets adequate. Glucose 88. Normal renal function, serum CO2, electrolytes. AST slight elevation, other liver functions normal. Lipase normal. Urine dip positive for blood otherwise negative, urinalysis requested. CT abdomen and pelvis with IV contrast ordered. IV Dilaudid/Zofran. Keep NPO for now. IV fluid bolus. CT abdomen and pelvis. Impressions: ?1. No acute findings within the abdomen or pelvis. 2. Moderate to large hiatal hernia. 3. Status post cholecystectomy with biliary ductal dilatation, likely due to post cholecystectomy status. Mild dilatation of the proximal pancreatic duct measuring 4 mm. 4. Please see above for additional findings. See radiology report. CT study did not show acute changes, copy given to patient. Hiatal hernia known, consider regular scheduled antacids. Follow up with Gastroenterology as planned. Patient concerned about nausea preventing her from taking existing oxycodone supply. Home pack ODT to facilitate oral medications and oral intake. Discharged home with family. Return precautions discussed. Discharge Plan Departure Patient Disposition: Home Clinical Impression: Left sided abdominal pain, Hiatal hernia Activity Restrictions/Additional Instructions: Left-sided abdominal pain of unclear cause, history of complex back surgery/interventions, awaiting follow up with GI specialist, prior upper and lower endoscopies in treatment course for H pylori. CT scanning tonight showed no acute changes, did show postoperative changes to the spine. You have old supply of oxycodone that does unfortunately cause nausea, home pack of ondansetron to use to help with nausea control, if you want to use to help keep down oxycodone doses. Follow up with your regular doctor and with GI as planned. Return to this/nearest emergency department for any change worsening symptoms or any concerns prior. Prescriptions: No Action lamotrigine 200 mg tablet extended release 24hr 200 mg PO BEDTIME Qty: 90 3RF hydroxyzine HCl 25 mg tablet 25 mg PO QID PRN (Reason: anxiety) Qty: 120 2RF trazodone 150 mg tablet 150 mg PO BEDTIME Qty: 90 3RF lorazepam [Ativan] 0.5 mg tablet 0.5 mg PO BID PRN (Reason: Anxiety or panic) Qty: 10 2RF duloxetine 30 mg capsule,delayed release(DR/EC) 30 mg PO DAILY Qty: 90 3RF disulfiram 250 mg tablet 250 mg PO DAILY PRN (Reason: craving) Referrals: Praveen Castaneda MD [Primary Care Provider, Internal Medicine] Stand Alone Forms: Patient Portal/API
--- NOTE | 2024-11-19 22:34 | DI.CT.S_ITS ---
PROCEDURE: CT ABDOMEN PELVIS W CON INDICATIONS: L sided abd flank pain TECHNIQUE: After the administration of intravenous contrast, axial sections acquired from the lung bases to the pubic symphysis. Coronal and sagittal reformats were performed. For radiation dose reduction, the following was used: automated exposure control, adjustment of mA and/or kV according to patient size. COMPARISON: [facility], CT, CT CHEST WO [facility], 07/12/2024, 8:46. FINDINGS: Image quality: Diagnostic. Lower Chest: No significant findings. ABDOMEN: Liver: No solid mass. Gallbladder: Surgically absent. Biliary ducts: Dilated but likely within normal limits for post cholecystectomy status. Pancreas: Mildly dilated proximally measuring up to 4 mm. Spleen: Size is within normal limits. Adrenal Glands: No adrenal nodules. Kidneys and Ureters: No hydronephrosis. No solid mass. No complex renal cystic lesion which requires follow up. Stomach and Bowel: Moderate to large hiatal hernia. Normal colonic caliber, without significant wall thickening. Normal appendix. Peritoneum: No abnormal intraperitoneal fluid. No free air. Ventral Wall: No significant ventral hernia. Abdominal Nodes: No retroperitoneal or mesenteric adenopathy by size criteria. Vessels: Aorta and inferior vena cava are normal in size. PELVIS: Pelvic Organs: Likely small uterine fibroids. Bladder: No bladder wall thickening, accounting for underdistention. Pelvic Nodes: No enlarged lymph nodes. Miscellaneous: No inguinal hernias are seen. Bones: No aggressive osseous abnormality. Bilateral sacroiliac joint fixation. T11 through L2 posterior spinal fixation. Dextroscoliotic curvature. Degenerative changes of the spine. IMPRESSION: 1. No acute findings within the abdomen or pelvis. 2. Moderate to large hiatal hernia. 3. Status post cholecystectomy with biliary ductal dilatation, likely due to post cholecystectomy status. Mild dilatation of the proximal pancreatic duct measuring 4 mm. 4. Please see above for additional findings. Dictated by: Yahir Issa M.D. on 11/19/2024 at 23:27 Approved by: Yahir Issa M.D. on 11/19/2024 at 23:34
[2024-11-19] MEDS: ONDANSETRON 4 MG/2 ML INJ IV (22:43)
[2024-11-19] MEDS: SODIUM CHLORIDE 0.9% 1,000 ML 1000 ML IV (22:43)
[2024-11-19 22:47] VITALS: BP 140/78; PULSE 60; RESP 17; O2SAT 98
[2024-11-19 23:00] VITALS: BP 135/76; PULSE 58; O2SAT 96
--- NOTE | 2024-11-19 23:08 | PC.NURSE ---
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
[2024-11-19 23:11] LABS: Culture Indicated Urine Cult Not Indicated
--- NOTE | 2024-11-19 23:20 | PC.NURSE ---
Pt ambulatory to restroom without difficultly or assistance
[2024-11-19 23:26] VITALS: BP 158/74; PULSE 61; O2SAT 98
[2024-11-19 23:30] VITALS: PULSE 56; O2SAT 98
[2024-11-19 23:31] VITALS: BP 121/58; BP 156/80; PULSE 56; RESP 14; O2SAT 97
[2024-11-20] VITALS: PULSE 56; O2SAT 96
[2024-11-20 00:01] VITALS: BP 164/79; PULSE 58; O2SAT 96
[2024-11-20] MEDS: ONDANSETRON 4 MG ODT PREPACK 1 BOTTLE MISC (00:01)
== END 2024-11-20 00:12 | disposition home or self-care (01) ==
PROVIDERS: Emergency Provider Emergency Medicine; PCP Internal Medicine
DX: K44.9 Diaphragmatic hernia without obstruction or gangrene (principal); R10.12 Left upper quadrant pain
CPT/HCPCS: 36415; 74177; 80053; 81003; 81015; 82962; 83690; 85025; 93005; 96361; 96374; 96375; 99284; J1171; J2405; Q9967

== ENCOUNTER → 2025-02-28 08:45 | Outpatient (CLI) | payer OTHER, SELFPAY | PROVIDERS: PCP Internal Medicine; Referring Provider Psychiatry & Neurology Psychiatry; Visit Provider Psychiatry & Neurology Psychiatry | DX: Z79.899 Other long term (current) drug therapy (principal) | CPT/HCPCS: 36415; 80175 ==